=== PATIENT | female | born 1995 | race Caucasian/White ===

== ENCOUNTER 2016-12-13 11:33 | Emergency (ER) | payer BC, OTHER ==
[~2016-12-13] VITALS: Ht 160 cm; Wt 76.0 kg
[~2016-12-13 11:33] MED LIST: ADVAIR 250/501 DISK IH; AMOXICILLIN500 MG PO; ATIVAN0.5 MG PO; AUGMENTIN875 MG PO; CATAPRES-TTS 11 EACH TD; CATAPRES0.1 MG PO; CLEOCIN300 MG PO; DOCUSATE SODIU100 MG PO; GABAPENTIN400 MG PO; IBUPROFEN600 MG PO; IBUPROFEN800 MG PO; LABETALOL HCL200 MG PO; MACROBID100 MG PO; METHADONE10 MG PO; MOTRIN800 MG PO; PERCOCET 5/31 TABLET PO; PREDNISONE20 MG PO; PROAIR HFA8.5 GM IH; Prefera-OB Plus DHA PO; TRAZODONE HCL50 MG PO; TYLENOL EXTRA500 MG PO; VALTREX1000 MG PO; ZOFRAN4 MG PO; [UNRECOGNIZED DRUG - OTHER] PO
[2016-12-13] MEDS ORDERED: PROMETHAZINE HC25 M1 PO (12:19)
[2016-12-13] MEDS ORDERED: BUPRENORPHINE HC8 MG SL (12:20)
[2016-12-13] MEDS ORDERED: DOXEPIN HCL10 MG PO (12:21)
[2016-12-13] MEDS ORDERED: PEN-VEE K,VEET500 MG PO (12:58)
[2016-12-13 13:16] VITALS: BP 125/75
== END 2016-12-13 13:17 | disposition home or self-care (01) ==
LOC: EME 11:33
DX: K08.89 Other specified disorders of teeth and supporting structures (principal); Z33.1 Pregnant state, incidental; O99.332 Smoking (tobacco) complicating pregnancy, second trimester; Z3A.25 25 weeks gestation of pregnancy
CPT/HCPCS: 99281; 99284

== ENCOUNTER → 2017-01-13 | Outpatient (CLI) | payer BC, OTHER ==
[~2017-01-13] VITALS: Ht 160 cm; Wt 75.3 kg
[~2017-01-13] MED LIST changes: +BUPRENORPHINE HC8 MG SL; +CLONIDINE HCL0.1 MG PO; +DOXEPIN HCL10 MG PO; +PEN-VEE K,VEET500 MG PO; +PRENATAL TABLE1 EAC3 PO; +PROMETHAZINE HC25 M1 PO
[2017-01-13 10:07] VITALS: BP 124/75
== END | disposition home or self-care (01) ==
LOC: IVINF 01-10 13:30
DX: Z31.82 Encounter for Rh incompatibility status (principal)
CPT/HCPCS: 96372; J2790

== ENCOUNTER 2017-03-14 08:42 | Inpatient (IN) | payer BC, OTHER ==
[~2017-03-14] VITALS: Ht 160 cm; Wt 77.6 kg
[2017-03-14] VITALS (19 sets, daily range): BP systolic 94–133; BP diastolic 55–76
[2017-03-14 10:55] LABS: ADD MIUA? YES; BILIRUBIN NEGATIVE; BLOOD NEGATIVE; COLOR YELLOW ((YELLOW)); GLUCOSE (STRIP) NEGATIVE; KETONES NEGATIVE; LEUKOCYTES LARGE; NITRITE NEGATIVE; PROTEIN (STRIP) NEGATIVE; SPECIFIC GRAVITY 1.011 (1.000-1.030); UROBILINOGEN 0.2 MG/DL (0.2-1.0)
[2017-03-14 11:06] LABS: BACTERIA 3+ /HPF; EPITHELIAL CELLS 3+ /HPF; MUCUS NONE SEEN /LPF; RED BLOOD CELLS 0-5 /HPF (0-5); UCUL ADDED? YES; WHITE BLOOD CELLS 30-40 /HPF (0-5)
[2017-03-14 11:07] LABS: EOSINOPHIL (%) 8.2 % (0-5); EOSINOPHIL COUNT 0.6 K/uL (0-0.3); HEMATOCRIT 34.1 % (36.0-46.0); IMMATURE GRANULOCYTE (%) 0.6 % (0.0-0.7); INSTRUMENT ABS NEUTROPHIL CT 3.7 K/uL; LYMPHOCYTE COUNT 2.3 K/uL (1.0-2.8); MCH 30.3 PG (29.0-34.0); MEAN PLAT.VOLUME 9.4 uM^3 (9.5-12.4); MONOCYTE (%) 6.3 % (3-12); MONOCYTE COUNT 0.5 K/uL (0-0.8); NEUTROPHIL (%) 52.1 % (45-76); NEUTROPHIL COUNT 3.7 K/uL (1.8-6.4); PLATELET COUNT 203 K/uL (156-360); RBC DIS.WIDTH-CV 14.2 % (11.8-14.6); RBC DIS.WIDTH-SD 45.2 % (39-53); RED BLOOD COUNT 3.83 M/uL (3.80-5.20); WHITE BLOOD COUNT 7.2 K/uL (4.1-10.2)
[2017-03-14 11:09] LABS: COCAINE NEGATIVE (150 ng/mL); METHAMPHETAMINE NEGATIVE (500 ng/mL); OPIATES (MORPHINE) NEGATIVE (100 ng/mL); PHENCYCLIDINE NEGATIVE (25 ng/mL); THC CANNABINOIDS NEGATIVE (50 ng/mL)
[2017-03-14 11:10] LABS: AMPHETAMINE NEGATIVE (500 ng/mL); BARBITURATES NEGATIVE (200 ng/mL); BENZODIAZEPINES NEGATIVE (150 ng/mL); INTERNAL CONTROLS VALID? YES; METHADONE NEGATIVE (200 ng/mL); OXYCODONE NEGATIVE (100 ng/mL); PROPOXYPHENE NEGATIVE (300 ng/mL); TRICYCLIC ANTIDEPRESSANTS NEGATIVE (300 ng/mL)
[2017-03-14] MEDS ORDERED: NEURONTIN800 MG PO (11:21)
[2017-03-15] VITALS (25 sets, daily range): BP systolic 109–165; BP diastolic 59–94
[2017-03-16 07:15] VITALS: BP 111/57
[2017-03-16 07:43] LABS: EOSINOPHIL (%) 1.9 % (0-5); EOSINOPHIL COUNT 0.1 K/uL (0-0.3); HEMATOCRIT 25.3 % (36.0-46.0); IMMATURE GRANULOCYTE (%) 0.4 % (0.0-0.7); INSTRUMENT ABS NEUTROPHIL CT 4.2 K/uL; LYMPHOCYTE COUNT 1.9 K/uL (1.0-2.8); MCH 30.2 PG (29.0-34.0); MCHC 34.4 G/DL (30.0-36.0); MCV 87.8 FL (83-99); MEAN PLAT.VOLUME 9.7 uM^3 (9.5-12.4); MONOCYTE COUNT 0.5 K/uL (0-0.8); NEUTROPHIL (%) 62.2 % (45-76); NEUTROPHIL COUNT 4.2 K/uL (1.8-6.4); PLATELET COUNT 147 K/uL (156-360); RBC DIS.WIDTH-CV 13.9 % (11.8-14.6); RBC DIS.WIDTH-SD 44.2 % (39-53); WHITE BLOOD COUNT 6.7 K/uL (4.1-10.2)
[2017-03-16 07:47] LABS: RED BLOOD COUNT 2.88 M/uL (3.80-5.20)
[2017-03-16 14:52] VITALS: BP 115/56
[2017-03-16 23:00] VITALS: BP 141/78
[2017-03-17] VITALS (9 sets, daily range): BP systolic 119–139; BP diastolic 70–94
[2017-03-18 07:41] VITALS: BP 142/77
[2017-03-18 15:25] VITALS: BP 130/72
[2017-03-18] MEDS ORDERED: BUTALB-APAP-CA1 EACH PO (18:07)
[2017-03-18] MEDS ORDERED: IBUPROFEN800 MG PO (18:07)
[2017-03-18] MEDS ORDERED: ALPRAZOLAM0.25 M2 PO (18:07)
[2017-03-18] MEDS ORDERED: CHROMAGEN,1 CAPSULE PO (18:07)
== END 2017-03-18 19:43 | disposition home or self-care (01) | DRG 774 ==
LOC: LDRP-OP → 2WEST 08:44 → LDRP-OP 19:08 → 2WEST 03-15 05:41 → LDRP-OP 05-04 13:42
PROVIDERS: Advanced Practice Midwife; Obstetrics & Gynecology
DX: O99.324 Drug use complicating childbirth (principal); F11.20 Opioid dependence, uncomplicated; D62 Acute posthemorrhagic anemia; O98.32 Other infections with a predominantly sexual mode of transmission complicating childbirth; F33.9 Major depressive disorder, recurrent, unspecified; O36.0931 Maternal care for other rhesus isoimmunization, third trimester, fetus 1; O99.354 Diseases of the nervous system complicating childbirth; O70.0 First degree perineal laceration during delivery; Z37.0 Single live birth; Z3A.37 37 weeks gestation of pregnancy; O99.02 Anemia complicating childbirth; A60.00 Herpesviral infection of urogenital system, unspecified; F17.210 Nicotine dependence, cigarettes, uncomplicated; O99.334 Smoking (tobacco) complicating childbirth; O99.344 Other mental disorders complicating childbirth; F41.0 Panic disorder [episodic paroxysmal anxiety]; F41.1 Generalized anxiety disorder; O76 Abnormality in fetal heart rate and rhythm complicating labor and delivery; J45.909 Unspecified asthma, uncomplicated; O36.5931 Maternal care for other known or suspected poor fetal growth, third trimester, fetus 1; O99.52 Diseases of the respiratory system complicating childbirth; O62.4 Hypertonic, incoordinate, and prolonged uterine contractions; B18.2 Chronic viral hepatitis C; O74.5 Spinal and epidural anesthesia-induced headache during labor and delivery; G47.00 Insomnia, unspecified; F90.9 Attention-deficit hyperactivity disorder, unspecified type; G40.909 Epilepsy, unspecified, not intractable, without status epilepticus; G43.909 Migraine, unspecified, not intractable, without status migrainosus
CPT/HCPCS: 70460; 70470; 81003; 85025; 87086; C1755; G0378; J0571; J3010; J7120

== ENCOUNTER 2017-06-06 11:39 | Emergency (ER) | payer BC ==
[~2017-06-06] VITALS: Ht 160 cm; Wt 67.1 kg
[~2017-06-06 11:39] MED LIST changes: +ALPRAZOLAM0.25 M2 PO; +BUTALB-APAP-CA1 EACH PO; +CHROMAGEN,1 CAPSULE PO; +NEURONTIN800 MG PO
[2017-06-06 13:03] LABS: ADD MIUA? YES; BILIRUBIN NEGATIVE; BLOOD LARGE; COLOR YELLOW ((YELLOW)); GLUCOSE (STRIP) NEGATIVE; KETONES NEGATIVE; LEUKOCYTES TRACE; NITRITE NEGATIVE; PROTEIN (STRIP) 30; UROBILINOGEN 0.2 MG/DL (0.2-1.0)
[2017-06-06 13:07] LABS: BACTERIA NONE SEEN /HPF; EPITHELIAL CELLS 2+ /HPF; MUCUS NONE SEEN /LPF; RED BLOOD CELLS 20-30 /HPF (0-5); UCUL ADDED? YES
[2017-06-06 13:35] LABS: MCH 27.7 PG (29.0-34.0); MCHC 32.5 G/DL (30.0-36.0); MCV 85.3 FL (83-99); MEAN PLAT.VOLUME 9.2 uM^3 (9.5-12.4); PLATELET COUNT 170 K/uL (156-360); RBC DIS.WIDTH-CV 13.6 % (11.8-14.6); RBC DIS.WIDTH-SD 42.5 % (39-53); RED BLOOD COUNT 4.22 M/uL (3.80-5.20); WHITE BLOOD COUNT 4.6 K/uL (4.1-10.2)
[2017-06-06 14:07] LABS: INFLUENZA A VIRAL ANTIGEN NEGATIVE; INFLUENZA B VIRAL ANTIGEN NEGATIVE
[2017-06-06 14:22] LABS: CHLORIDE 104 mEq/L (99-109); POTASSIUM 3.6 mEq/L (3.7-5.4); SODIUM 139 mEq/L (136-147)
[2017-06-06 14:24] LABS: GLUCOSE 96 mg/dL (70-99)
[2017-06-06 14:25] LABS: ANION GAP 8 MEQ/L (2-14); QUANTITATIVE HCG < 4.0 MIU/ML
[2017-06-06 14:26] LABS: TOTAL BILIRUBIN 0.3 mg/dL (0.0-1.0)
[2017-06-06 14:28] LABS: ALKALINE PHOSPHATASE 65 IU/L (3-129); GFR ESTIMATE (CALCULATED) > 59 mL/min/
[2017-06-06 14:29] LABS: UREA NITROGEN (BUN) 7 mg/dL (9-23)
[2017-06-06 14:51] LABS: ADD MEDTOX COMMENT Y; AMPHETAMINE PRESUMPTIVE POSITIVE (500 ng/mL); BARBITURATES NEGATIVE (200 ng/mL); BENZODIAZEPINES NEGATIVE (150 ng/mL); COCAINE NEGATIVE (150 ng/mL); INTERNAL CONTROLS VALID? YES; METHADONE NEGATIVE (200 ng/mL); METHAMPHETAMINE NEGATIVE (500 ng/mL); OPIATES (MORPHINE) NEGATIVE (100 ng/mL); OXYCODONE NEGATIVE (100 ng/mL); PHENCYCLIDINE NEGATIVE (25 ng/mL); PROPOXYPHENE NEGATIVE (300 ng/mL); THC CANNABINOIDS NEGATIVE (50 ng/mL); TRICYCLIC ANTIDEPRESSANTS NEGATIVE (300 ng/mL)
[2017-06-06] MEDS ORDERED: MOTRIN800 MG PO (15:08)
[2017-06-06] MEDS ORDERED: KEFLEX500 MG PO (15:08)
[2017-06-06] MEDS ORDERED: ZOFRAN ODT4 MG PO (15:08)
[2017-06-06 15:48] VITALS: BP 104/58
== END 2017-06-06 15:50 | disposition home or self-care (01) ==
LOC: EME 11:39
PROVIDERS: Nurse Practitioner Family
DX: J06.9 Acute upper respiratory infection, unspecified (principal); N39.0 Urinary tract infection, site not specified; F17.200 Nicotine dependence, unspecified, uncomplicated; J45.909 Unspecified asthma, uncomplicated; F41.9 Anxiety disorder, unspecified; F32.9 Major depressive disorder, single episode, unspecified; R56.9 Unspecified convulsions; Z91.040 Latex allergy status
CPT/HCPCS: 71020; 80053; 81003; 83605; 84702; 84999; 85027; 87086; 87502; 87651 90; 99281; 99285; J1885; J7030

== ENCOUNTER 2017-09-20 16:43 | Emergency (ER) | payer BC ==
[~2017-09-20] VITALS: Ht 160 cm; Wt 66.5 kg
[~2017-09-20 16:43] MED LIST changes: +KEFLEX500 MG PO; +ZOFRAN ODT4 MG PO
[2017-09-20] MEDS ORDERED: DOXYCYCLINE HY100 MG PO (18:41)
[2017-09-20 19:05] VITALS: BP 140/73
== END 2017-09-20 19:06 | disposition home or self-care (01) ==
LOC: EME 16:43
DX: K02.9 Dental caries, unspecified (principal); J40 Bronchitis, not specified as acute or chronic; Z72.0 Tobacco use; Z91.040 Latex allergy status; Z88.1 Allergy status to other antibiotic agents; Z88.8 Allergy status to other drugs, medicaments and biological substances
CPT/HCPCS: 99281; 99284; J8540

== ENCOUNTER 2017-11-14 20:03 | Emergency (ER) | payer BC ==
[~2017-11-14] VITALS: Ht 160 cm; Wt 66.5 kg
[~2017-11-14 20:03] MED LIST changes: +DOXYCYCLINE HY100 MG PO
[2017-11-14 20:05] VITALS: BP 120/82
[2017-11-14 20:46] LABS: HEMATOCRIT 39.4 % (36.0-46.0); HEMOGLOBIN 13.6 G/DL (11.9-15.5); MCH 29.5 PG (29.0-34.0); MCHC 34.5 G/DL (30.0-36.0); MCV 85.5 FL (83-99); PLATELET COUNT 245 K/uL (156-360); RBC DIS.WIDTH-CV 13.2 % (11.8-14.6); RBC DIS.WIDTH-SD 40.6 % (39-53); RED BLOOD COUNT 4.61 M/uL (3.80-5.20); WHITE BLOOD COUNT 5.1 K/uL (4.1-10.2)
[2017-11-14 20:55] LABS: CHLORIDE 108 mEq/L (99-109); SODIUM 141 mEq/L (136-147)
[2017-11-14 20:56] LABS: GLUCOSE 89 mg/dL (70-99)
[2017-11-14 21:00] LABS: CREATININE 0.8 mg/dL (0.6-1.3); GFR ESTIMATE (CALCULATED) > 59 mL/min/
[2017-11-14 21:01] LABS: UREA NITROGEN (BUN) 10 mg/dL (9-23)
[2017-11-14 21:38] LABS: APPEARANCE SL.HAZY ((CLEAR)); BILIRUBIN NEGATIVE; BLOOD NEGATIVE; COLOR YELLOW ((YELLOW)); GLUCOSE (STRIP) NEGATIVE; KETONES NEGATIVE; LEUKOCYTES TRACE; NITRITE NEGATIVE; PROTEIN (STRIP) NEGATIVE; SPECIFIC GRAVITY 1.019 (1.000-1.030); UROBILINOGEN 0.2 MG/DL (0.2-1.0)
[2017-11-14 21:49] LABS: QUANTITATIVE HCG < 4.0 MIU/ML
[2017-11-14 21:52] LABS: BACTERIA RARE /HPF; EPITHELIAL CELLS 2+ /HPF; MUCUS TRACE /LPF; RED BLOOD CELLS 0-5 /HPF (0-5); WHITE BLOOD CELLS 0-5 /HPF (0-5)
== END 2017-11-14 23:09 | disposition left against medical advice (07) ==
LOC: EME 20:03
DX: K04.7 Periapical abscess without sinus (principal); R51 Headache; R11.0 Nausea; Z53.21 Procedure and treatment not carried out due to patient leaving prior to being seen by health care provider
CPT/HCPCS: 71046; 80048; 81003; 84702; 85027; 93005

== ENCOUNTER 2017-11-19 15:05 | Emergency (ER) | payer SELFPAY ==
[~2017-11-19] VITALS: Ht 160 cm; Wt 66.5 kg
[2017-11-19 16:12] LABS: HEMATOCRIT 36.8 % (36.0-46.0); HEMOGLOBIN 12.7 G/DL (11.9-15.5); MCH 29.6 PG (29.0-34.0); MCHC 34.5 G/DL (30.0-36.0); MCV 85.8 FL (83-99); PLATELET COUNT 214 K/uL (156-360); RBC DIS.WIDTH-CV 13.2 % (11.8-14.6); RBC DIS.WIDTH-SD 41.1 % (39-53); RED BLOOD COUNT 4.29 M/uL (3.80-5.20); WHITE BLOOD COUNT 4.4 K/uL (4.1-10.2)
[2017-11-19 16:20] LABS: D-DIMER ELISA < 150.00 ng/mLDDU (<230)
[2017-11-19 16:22] LABS: CHLORIDE 109 mEq/L (99-109); POTASSIUM 4.2 mEq/L (3.7-5.4); SODIUM 141 mEq/L (136-147)
[2017-11-19 16:24] LABS: GLUCOSE 105 mg/dL (70-99); TOTAL PROTEIN 6.5 g/dL (6.4-8.3)
[2017-11-19 16:26] LABS: TOTAL BILIRUBIN 0.3 mg/dL (0.0-1.0)
[2017-11-19 16:27] LABS: ALKALINE PHOSPHATASE 77 IU/L (3-129)
[2017-11-19 16:28] LABS: CREATININE 0.8 mg/dL (0.6-1.3); GFR ESTIMATE (CALCULATED) > 59 mL/min/
[2017-11-19 16:29] LABS: AST (GOT) 13 IU/L (2-34); UREA NITROGEN (BUN) 12 mg/dL (9-23)
[2017-11-19 16:31] LABS: ALT (GPT) 10 IU/L (3-49)
[2017-11-19 16:36] LABS: TROP-I INTERPRETATION NEGATIVE; TROPONIN-I < 0.01 ng/mL (0.0-0.30)
[2017-11-19 16:37] LABS: QUANTITATIVE HCG < 4.0 MIU/ML
[2017-11-19 16:49] LABS: APPEARANCE CLOUDY ((CLEAR)); BILIRUBIN NEGATIVE; BLOOD LARGE; COLOR YELLOW ((YELLOW)); GLUCOSE (STRIP) NEGATIVE; KETONES NEGATIVE; LEUKOCYTES NEGATIVE; NITRITE NEGATIVE; PROTEIN (STRIP) 100; SPECIFIC GRAVITY 1.023 (1.000-1.030); UROBILINOGEN 0.2 MG/DL (0.2-1.0)
[2017-11-19 17:07] LABS: BACTERIA RARE /HPF; EPITHELIAL CELLS 1+ /HPF; MUCUS NONE SEEN /LPF; RED BLOOD CELLS TNTC /HPF (0-5); UCUL ADDED? YES; WHITE BLOOD CELLS NONE SEEN /HPF (0-5)
[2017-11-19] MEDS ORDERED: BENTYL10 MG PO (17:39)
[2017-11-19] MEDS ORDERED: NAPROXEN500 MG PO (17:39)
[2017-11-19 17:49] VITALS: BP 121/69
[2017-11-19] MEDS ORDERED: PROVENTIL,2.5 MG/3 M IH (18:09)
== END 2017-11-19 18:13 | disposition home or self-care (01) ==
LOC: EME 15:05
PROVIDERS: Physician Assistant Medical
DX: B34.9 Viral infection, unspecified (principal); K59.00 Constipation, unspecified; J45.909 Unspecified asthma, uncomplicated; F31.9 Bipolar disorder, unspecified; F32.9 Major depressive disorder, single episode, unspecified; R56.9 Unspecified convulsions; F17.200 Nicotine dependence, unspecified, uncomplicated; Z91.040 Latex allergy status; Z88.1 Allergy status to other antibiotic agents; Z88.8 Allergy status to other drugs, medicaments and biological substances
CPT/HCPCS: 74022; 80053; 81003; 84484; 84702; 85027; 85379; 87086; 87106; 93005; 94640; 99281; 99284

== ENCOUNTER 2018-03-28 15:54 | Emergency (ER) | payer SELFPAY ==
[~2018-03-28] VITALS: Ht 152.4 cm; Wt 68.1 kg
[~2018-03-28 15:54] MED LIST changes: +BENTYL10 MG PO; +NAPROXEN500 MG PO; +PROVENTIL,2.5 MG/3 M IH
[2018-03-28] MEDS ORDERED: PROAIR HFA8.5 GM IH (15:58)
[2018-03-28 16:10] VITALS: BP 120/67
== END 2018-03-28 16:30 | disposition home or self-care (01) ==
LOC: EME 15:54
DX: J45.901 Unspecified asthma with (acute) exacerbation (principal); F17.200 Nicotine dependence, unspecified, uncomplicated
CPT/HCPCS: 99281; 99284